=== PATIENT | male | born 1950 | race Caucasian/White ===

== ENCOUNTER 2016-06-12 13:07 | Inpatient (IN) | payer MEDICARE, BC, OTHER ==
[~2016-06-12] VITALS: Ht 182.9 cm; Wt 116.3 kg
[2016-06-12] MEDS ORDERED: SODIUM CHLORIDE 0.9% 1,000 ML ONE (14:32)
[2016-06-12] MEDS ORDERED: GLUCAGON 1 MG VIAL IM PRN (15:45)
[2016-06-12] MEDS ORDERED: PHARMACY TO DOSE LEVAQUIN IV SCH (15:45)
[2016-06-12] MEDS ORDERED: ACETAMINOPHEN 325 MG TAB PO PRN (15:55)
[2016-06-12] MEDS ORDERED: SODIUM CHLORIDE 0.9% 1,000 ML IV SCH (15:55)
[2016-06-12] MEDS ORDERED: SALINE FLUSH 10 ML FLUSH PRN (15:55)
[2016-06-12 17:19] VITALS: BP_SYST 155; RESP 20; TEMP 96
[2016-06-12 17:30] VITALS: BP_SYST 100
[2016-06-12 17:31] VITALS: Ht 182.9 cm; Wt 116.3 kg
[2016-06-12 17:41] VITALS: RESP 18
[2016-06-12] MEDS ORDERED: **NOTE TO NURSE XX SCH (18:05)
[2016-06-12] MEDS ORDERED: LEVOFLOXACIN 750 MG/150 ML 150 ML IV ONE (18:45)
[2016-06-12] MEDS ORDERED: DEXTROSE 5% SALINE 0.9% 1,000 ML IV SCH (19:15)
[2016-06-12] MEDS: METRONIDAZOLE 500MG/100ML 100 ML IV SCH (19:26)
[2016-06-12 19:59] VITALS: BP_SYST 92; RESP 20; TEMP 97.3
[2016-06-12] MEDS: SALINE FLUSH 10 ML FLUSH SCH (20:00)
[2016-06-12] MEDS: FAMOTIDINE 20 MG INJ IV SCH (20:36)
[2016-06-12 23:27] VITALS: BP_SYST 98; RESP 20; TEMP 95.9
[2016-06-13] MEDS: METRONIDAZOLE 500MG/100ML 100 ML IV SCH ×4 (00:17→23:46)
[2016-06-13] MEDS ORDERED: DEXTROSE 50% SYRINGE 50 ML IV ONE (02:15)
[2016-06-13] MEDS ORDERED: DEXTROSE 5% 500 ML IV PRN (05:15)
[2016-06-13 07:56] VITALS: BP_SYST 98; RESP 20; TEMP 98.2
[2016-06-13] MEDS: SODIUM CHLORIDE 0.9% FLUSH BAG 500 ML IV SCH (08:07)
[2016-06-13] MEDS: SALINE FLUSH 10 ML FLUSH SCH ×2 (08:14→20:00)
[2016-06-13] MEDS: FAMOTIDINE 20 MG INJ IV SCH ×2 (08:15→21:12)
[2016-06-13] MEDS ORDERED: SODIUM CHLORIDE 0.9% 500 ML IV ONE (09:45)
[2016-06-13] MEDS ORDERED: MISSING DOSE XX ONE (10:35)
[2016-06-13 11:11] VITALS: BP_SYST 118; RESP 20; TEMP 98.3
[2016-06-13] MEDS: LOPERAMIDE 2 MG CAPSULE PO SCH ×3 (11:14→21:14)
[2016-06-13] MEDS: DEXTROSE 50% SYRINGE 50 ML IV PRN ×3 (13:22→16:47)
[2016-06-13] MEDS: DEXTROSE 10% 1,000 ML IV SCH (13:51)
[2016-06-13 15:40] VITALS: BP_SYST 111; RESP 20; TEMP 97.8
[2016-06-13] MEDS: DUONEB INH PRN (18:12)
[2016-06-13 19:36] VITALS: BP_SYST 126; RESP 20; TEMP 98.2
[2016-06-13 23:57] VITALS: BP_SYST 131; RESP 20; TEMP 98.4
[2016-06-14 03:38] VITALS: BP_SYST 125; RESP 22; TEMP 97.4
[2016-06-14] MEDS: DEXTROSE 50% SYRINGE 50 ML IV PRN (03:39)
[2016-06-14] MEDS: SODIUM CHLORIDE 0.9% FLUSH BAG 500 ML IV SCH (05:55)
[2016-06-14] MEDS: FAMOTIDINE 20 MG INJ IV SCH ×2 (07:43→20:49)
[2016-06-14] MEDS: METRONIDAZOLE 500MG/100ML 100 ML IV SCH ×2 (07:43→15:39)
[2016-06-14] MEDS: SALINE FLUSH 10 ML FLUSH SCH ×2 (07:43→19:49)
[2016-06-14] MEDS: LOPERAMIDE 2 MG CAPSULE PO SCH ×4 (07:43→20:52)
[2016-06-14 07:52] VITALS: BP_SYST 100; RESP 18; TEMP 97.5
[2016-06-14] MEDS ORDERED: LEVOFLOXACIN 500 MG/100 ML 100 ML IV SCH ×2 (09:00→21:00)
[2016-06-14 11:27] VITALS: BP_SYST 114; RESP 18; TEMP 98.3
[2016-06-14] MEDS: DEXTROSE 10% 1,000 ML IV SCH (11:45)
[2016-06-14 15:33] VITALS: BP_SYST 116; RESP 18; TEMP 97.8
[2016-06-14] MEDS ORDERED: ONDANSETRON 4 MG VIAL IV PUSH PRN (16:20)
[2016-06-14] MEDS: GUAIFENESIN ER 600 MG TABCR PO SCH (20:52)
[2016-06-14 21:30] VITALS: BP_SYST 119; RESP 16; TEMP 98.2
[2016-06-14 23:31] VITALS: BP_SYST 102; RESP 20; TEMP 98.3
[2016-06-15] MEDS: DEXTROSE 10% 1,000 ML IV SCH ×2 (01:24→11:52)
[2016-06-15] MEDS: SODIUM CHLORIDE 0.9% FLUSH BAG 500 ML IV SCH (05:02)
[2016-06-15 05:24] VITALS: BP_SYST 112; RESP 20; TEMP 98.5
[2016-06-15] MEDS: DUONEB INH PRN ×4 (05:50→23:22)
[2016-06-15 07:31] VITALS: BP_SYST 98; RESP 18; TEMP 97.8
[2016-06-15] MEDS: SALINE FLUSH 10 ML FLUSH SCH ×2 (08:40→20:00)
[2016-06-15] MEDS: FAMOTIDINE 20 MG INJ IV SCH ×2 (08:41→21:01)
[2016-06-15] MEDS: GUAIFENESIN ER 600 MG TABCR PO SCH ×2 (08:41→21:00)
[2016-06-15] MEDS: LOPERAMIDE 2 MG CAPSULE PO SCH ×4 (08:41→21:00)
[2016-06-15 11:05] VITALS: BP_SYST 140; RESP 18; TEMP 98.3
[2016-06-15 16:00] VITALS: BP_SYST 121; RESP 18; TEMP 97.7
[2016-06-15] MEDS ORDERED: SODIUM CHLORIDE 0.9% 1,000 ML IV SCH (18:05)
[2016-06-15] MEDS: SODIUM CHLORIDE 0.9% 1,000 ML IV SCH (18:28)
[2016-06-15 19:49] VITALS: BP_SYST 126; RESP 20; TEMP 98.7
[2016-06-15 23:08] VITALS: BP_SYST 124; RESP 20; TEMP 98.5
[2016-06-16] VITALS (8 sets, daily range): BP systolic 116–153; RESP 20; TEMP 97.9–98.9
[2016-06-16] MEDS: SODIUM CHLORIDE 0.9% 1,000 ML IV SCH ×3 (02:47→18:22)
[2016-06-16] MEDS: SODIUM CHLORIDE 0.9% FLUSH BAG 500 ML IV SCH (06:00)
[2016-06-16] MEDS: DUONEB INH PRN ×5 (07:27→23:00)
[2016-06-16] MEDS ORDERED: MISSING DOSE XX ONE (08:25)
[2016-06-16] MEDS: SALINE FLUSH 10 ML FLUSH SCH ×2 (09:04→20:00)
[2016-06-16] MEDS: FAMOTIDINE 20 MG INJ IV SCH ×2 (09:05→21:20)
[2016-06-16] MEDS: GUAIFENESIN ER 600 MG TABCR PO SCH ×2 (09:05→21:18)
[2016-06-16] MEDS: LOPERAMIDE 2 MG CAPSULE PO SCH ×3 (09:05→21:18)
[2016-06-16] MEDS: BENZONATATE 100 MG CAP PO SCH ×2 (17:05→21:18)
[2016-06-16] MEDS ORDERED: LEVOFLOXACIN 750 MG/150 ML 150 ML IV SCH (21:00)
[2016-06-17] MEDS: DUONEB INH PRN ×2 (02:15→07:37)
[2016-06-17 02:17] VITALS: BP_SYST 155; RESP 18; TEMP 98.4
[2016-06-17] MEDS: SODIUM CHLORIDE 0.9% 1,000 ML IV SCH ×2 (02:37→14:14)
[2016-06-17] MEDS: SODIUM CHLORIDE 0.9% FLUSH BAG 500 ML IV SCH (03:27)
[2016-06-17 07:21] VITALS: BP_SYST 145; RESP 18; TEMP 98.1
[2016-06-17] MEDS: SALINE FLUSH 10 ML FLUSH SCH ×2 (08:00→19:23)
[2016-06-17] MEDS: FAMOTIDINE 20 MG INJ IV SCH (08:05)
[2016-06-17] MEDS: BENZONATATE 100 MG CAP PO SCH ×3 (08:05→20:27)
[2016-06-17] MEDS: LOPERAMIDE 2 MG CAPSULE PO SCH ×2 (08:06→20:27)
[2016-06-17] MEDS: GUAIFENESIN ER 600 MG TABCR PO SCH ×2 (08:06→20:27)
[2016-06-17 11:13] VITALS: BP_SYST 120; RESP 18; TEMP 98.4
[2016-06-17] MEDS ORDERED: NEB-ALBUTEROL 2.5 MG/3 ML INH PRN (12:30)
[2016-06-17] MEDS: DUONEB INH SCH ×4 (12:30→23:07)
[2016-06-17 14:56] VITALS: BP_SYST 141; RESP 18; TEMP 98.4
[2016-06-17 19:30] VITALS: BP_SYST 135; RESP 18; TEMP 98.7
[2016-06-17] MEDS: FAMOTIDINE 20 MG TAB PO SCH (20:27)
[2016-06-17] MEDS ORDERED: LEVOFLOXACIN 750 MG/150 ML 150 ML IV SCH (21:00)
[2016-06-18] VITALS (9 sets, daily range): BP systolic 131–165; RESP 18–20; TEMP 97.8–99.1
[2016-06-18] MEDS: SODIUM CHLORIDE 0.9% FLUSH BAG 500 ML IV SCH (06:00)
[2016-06-18] MEDS: SALINE FLUSH 10 ML FLUSH SCH ×2 (07:16→20:28)
[2016-06-18] MEDS: DUONEB INH SCH ×4 (07:43→22:48)
[2016-06-18] MEDS: SODIUM CHLORIDE 0.9% 1,000 ML IV SCH (07:57)
[2016-06-18] MEDS: FAMOTIDINE 20 MG TAB PO SCH ×2 (07:58→20:27)
[2016-06-18] MEDS: BENZONATATE 100 MG CAP PO SCH ×3 (07:58→20:28)
[2016-06-18] MEDS: LOPERAMIDE 2 MG CAPSULE PO SCH ×2 (07:58→20:28)
[2016-06-18] MEDS: GUAIFENESIN ER 600 MG TABCR PO SCH ×2 (07:59→20:28)
[2016-06-18] MEDS: GLIMEPIRIDE 2 MG TAB PO SCH ×2 (15:15→20:28)
[2016-06-18] MEDS: LEVOFLOXACIN 750 MG TAB PO SCH (15:15)
[2016-06-18] MEDS: SITAGLIPTIN 50 MG TAB PO SCH (15:40)
[2016-06-18] MEDS: NEBIVOLOL 10 MG TAB PO SCH (15:40)
[2016-06-19 03:22] VITALS: TEMP 99.5
[2016-06-19 03:23] VITALS: BP_SYST 144; RESP 20; TEMP 99.5
[2016-06-19] MEDS: SODIUM CHLORIDE 0.9% FLUSH BAG 500 ML IV SCH (06:00)
[2016-06-19 07:15] VITALS: BP_SYST 148; RESP 20; TEMP 98.3
[2016-06-19] MEDS: SALINE FLUSH 10 ML FLUSH SCH (08:00)
[2016-06-19] MEDS: FAMOTIDINE 20 MG TAB PO SCH (08:25)
[2016-06-19] MEDS: SITAGLIPTIN 50 MG TAB PO SCH (08:28)
[2016-06-19] MEDS: LOPERAMIDE 2 MG CAPSULE PO SCH (08:28)
[2016-06-19] MEDS: LEVOFLOXACIN 750 MG TAB PO SCH (08:28)
[2016-06-19] MEDS: BENZONATATE 100 MG CAP PO SCH (08:28)
[2016-06-19] MEDS: GLIMEPIRIDE 2 MG TAB PO SCH (08:28)
[2016-06-19] MEDS: NEBIVOLOL 10 MG TAB PO SCH (08:28)
[2016-06-19] MEDS: GUAIFENESIN ER 600 MG TABCR PO SCH (08:28)
[2016-06-19] MEDS: DUONEB INH SCH ×2 (08:39→15:00)
[2016-06-19 13:19] VITALS: BP_SYST 148; RESP 20; TEMP 98.3
[2016-06-19 13:21] VITALS: BP_SYST 148; RESP 20; TEMP 98.3
[2016-06-19 14:00] VITALS: BP_SYST 148; RESP 20; TEMP 98.3
[2016-06-20] MEDS ORDERED: GLIMEPIRIDE 2 MG TAB PO SCH (09:00)
== END 2016-06-19 16:36 | disposition home or self-care (01) | DRG 682 ==
LOC: ENRESERVDT → ENRESERVTM → ER 13:07 → EMR 15:45 → ENPENDDIS 15:45 → 3NT 17:07
PROVIDERS: ADMIT Hospitalist; ATTEND Hospitalist
DX: N17.9 Acute kidney failure, unspecified (principal); J18.9 Pneumonia, unspecified organism; E09.649 Drug or chemical induced diabetes mellitus with hypoglycemia without coma; J44.0 Chronic obstructive pulmonary disease with (acute) lower respiratory infection; K52.9 Noninfective gastroenteritis and colitis, unspecified; E86.0 Dehydration; T38.3X5A Adverse effect of insulin and oral hypoglycemic [antidiabetic] drugs, initial encounter; Z79.84 Long term (current) use of oral hypoglycemic drugs; E66.01 Morbid (severe) obesity due to excess calories; Z68.34 Body mass index [BMI] 34.0-34.9, adult; I10 Essential (primary) hypertension; E78.5 Hyperlipidemia, unspecified; M19.90 Unspecified osteoarthritis, unspecified site; Z87.891 Personal history of nicotine dependence
CPT/HCPCS: 36415; 71010; 74176; 74181; 76770; 80048; 80053; 80069; 81001; 81003; 82436; 82570; 82947; 83605; 83630; 83690; 83735; 84100; 84156; 84300; 85025; 87040; 87045; 87046; 87088; 87177; 87493; 94640; 94799; 96360; 99223; 99233; 99238